=== PATIENT | male | born 1955 | race Caucasian/White ===

== ENCOUNTER 2020-01-05 13:20 | Emergency (ER) | payer MEDICARE, MEDICAID ==
[~2020-01-05] VITALS: Ht 175.3 cm; Wt 104.3 kg
[2020-01-05 15:23] VITALS: BP 134/77
== END 2020-01-05 16:26 | disposition home or self-care (01) ==
LOC: EDBD 13:20 → ER 13:29
DX: S83.91XA Sprain of unspecified site of right knee, initial encounter (principal); W22.8XXA Striking against or struck by other objects, initial encounter; Y93.89 Activity, other specified; Y92.091 Bathroom in other non-institutional residence as the place of occurrence of the external cause; Y99.8 Other external cause status
CPT/HCPCS: 73562

== ENCOUNTER 2021-07-26 17:59 | Inpatient (IN) | payer MEDICARE, MEDICAID ==
[~2021-07-26] VITALS: Ht 180.3 cm; Wt 107.3 kg
[2021-07-26] MEDS ORDERED: ETOMIDATE (2MG/ML) 20ML VIAL IV ONE ×2 (18:02→18:15)
[2021-07-26] MEDS ORDERED: SUCCINYLCHOLINE CHLORIDE 20 MG/ML 10ML VIAL IV ONE ×2 (18:02→18:15)
[2021-07-26 18:04] VITALS: BP 165/115
[2021-07-26] MEDS ORDERED: NITROGLYCERIN 50MG/250ML 250 ML IV ONE (18:15)
[2021-07-26] MEDS ORDERED: FUROSEMIDE 40 MG/4 ML VIAL IV ONE (18:15)
[2021-07-26] MEDS ORDERED: PROPOFOL 100 ML IV ONE (18:29)
[2021-07-26] MEDS ORDERED: methylPREDNISolone SOD SUCC 125 MG/2 ML VL IV ONE (19:15)
[2021-07-26] MEDS: MIDAZOLAM DRIP 50 mg/50mL 50 ML IV SCH ×2 (19:35→21:25)
[2021-07-26] MEDS ORDERED: NOREPINEPHRINE 8 MG/250ML KIT 250 ML IV ONE (19:36)
[2021-07-26] MEDS: PROPOFOL 100 ML IV SCH (19:36)
[2021-07-26 19:56] LABS: Mean Corpuscular Hgb Conc. 32.7 g/dL (32.0-36.0)
[2021-07-26 19:57] LABS: Basophils # (auto) 0.1 10 ^3/uL (0-0.2); Basophils % (auto) 0.7 % (0.0-2.0); Eosinophils # (auto) 0.1 10 ^3/uL (0-0.8); Eosinophils % (auto) 0.7 % (0.0-7.0); Hemoglobin 17.3 g/dL (13.5-17.5); Lymphocytes # (auto) 4.1 10 ^3/uL (0.4-5.4); Lymphocytes % (auto) 20.2 % (10.0-50.0); Mean Corpuscular Hemoglobin 34.1 pg (28.0-32.0); Mean Corpuscular Volume 104.4 fL (80.0-100.0); Neutrophils # (auto) 14.9 10 ^3/uL (1.6-8.6); Neutrophils % (auto) 73.4 % (37.0-80.0); Nucleated Red Blood Cells % 0.1 %; Red Blood Cells 5.08 10^6/uL (4.5-5.90); Red Cell Distribution Width 13.4 % (11.8-14.3); White Blood Cell 20.3 10^3/uL (4.4-10.8)
[2021-07-26] MEDS: NOREPINEPHRINE 8 MG/250ML KIT 250 ML IV SCH (19:58)
[2021-07-26 20:00] VITALS: BP 106/68
[2021-07-26 20:00] LABS: Albumin 3.5 g/dL (3.4-5.0); Calcium 9.1 mg/dL (8.5-10.1); Potassium 4.6 mmol/L (3.5-5.1)
[2021-07-26 20:03] LABS: Lactic Acid w/Reflex 5.4 mmol/L (0.4-2.0)
[2021-07-26 20:13] LABS: BUN/Creatinine Ratio 11.8; Bilirubin, Total 0.4 mg/dL (0.2-1.0); Total Protein 8.1 g/dL (6.4-8.2)
[2021-07-26] MEDS ORDERED: AZITHROMYCIN 500MG/ 250ML 250 ML IV ONE (20:30)
[2021-07-26] MEDS ORDERED: ALBUMIN 5% 250 ML IV ONE (21:30)
[2021-07-26] MEDS ORDERED: NITROGLYCERIN 0.4 MG SL TAB SL PRN (21:30)
[2021-07-26] MEDS ORDERED: ONDANSETRON HCL 4 MG/2 ML VIAL IV PRN (21:30)
[2021-07-26] MEDS ORDERED: ALBUTEROL SULF 2.5 MG/0.5ML(0.5%) NEB SOLN NEB PRN (21:30)
[2021-07-26] MEDS ORDERED: IPRATROPIUM BROM 0.5 MG/2.5ML INH SOL NEB PRN (21:30)
[2021-07-26] MEDS ORDERED: ENOXAPARIN SOD 100 MG/1 ML SYRINGE SC ONE (21:30)
[2021-07-26] MEDS ORDERED: SODIUM CHLORIDE 0.9% 1,000 ML IV SCH (21:30)
[2021-07-26] MEDS ORDERED: cefTRIAXone 1GM/50ML D5W 50 ML IV ONE (21:30)
[2021-07-26 22:10] VITALS: BP 108/74
[2021-07-27] VITALS (69 sets, daily range): BP systolic 85–126; BP diastolic 46–76
[2021-07-27] MEDS: MIDAZOLAM DRIP 50 mg/50mL 50 ML IV SCH ×7 (01:18→22:43)
[2021-07-27 02:19] LABS: Urine Bacteria FEW /hpf (None Seen); Urine Blood 2+ /uL (Negative); Urine Hyaline Cast MOD /lpf (0 - 2); Urine Mucus FEW (None Seen); Urine Specific Gravity 1.017 (1.001-1.035); Urine WBC 10 /hpf (0 - 3)
[2021-07-27] MEDS ORDERED: SODIUM BICARBONATE 8.4 % INJ 50ML VIAL IV ONE ×2 (05:15→19:23)
[2021-07-27 05:29] LABS: Eosinophils # (auto) 0 10 ^3/uL (0-0.8); Hemoglobin 15.1 g/dL (13.5-17.5); Lymphocytes # (auto) 0.8 10 ^3/uL (0.4-5.4); Neutrophils % (auto) 91.3 % (37.0-80.0)
[2021-07-27 05:31] LABS: Basophils # (auto) 0.1 10 ^3/uL (0-0.2); Basophils % (auto) 0.4 % (0.0-2.0); Hematocrit 44.8 % (41.0-53.0); Lymphocytes % (auto) 6.1 % (10.0-50.0); Mean Corpuscular Hemoglobin 34.9 pg (28.0-32.0); Mean Corpuscular Hgb Conc. 33.8 g/dL (32.0-36.0); Mean Corpuscular Volume 103.5 fL (80.0-100.0); Monocytes # (auto) 0.3 10 ^3/uL (0-1.3); Monocytes % (auto) 2.2 % (0.0-12.0); Neutrophils # (auto) 11.6 10 ^3/uL (1.6-8.6); Red Blood Cells 4.33 10^6/uL (4.5-5.90); Red Cell Distribution Width 12.9 % (11.8-14.3); White Blood Cell 12.7 10^3/uL (4.4-10.8)
[2021-07-27] MEDS: PROPOFOL 100 ML IV SCH ×2 (05:39→16:48)
[2021-07-27 06:06] LABS: Albumin 3.3 g/dL (3.4-5.0); BUN/Creatinine Ratio 13.9; Calcium 8.5 mg/dL (8.5-10.1); Potassium 5.1 mmol/L (3.5-5.1)
[2021-07-27 06:09] LABS: Bilirubin, Total 0.4 mg/dL (0.2-1.0); Total Protein 7.3 g/dL (6.4-8.2)
[2021-07-27] MEDS: cefTRIAXone 1GM/50ML D5W 50 ML IV SCH ×2 (09:00→10:20)
[2021-07-27] MEDS: ASPirin 81 mg TAB PO SCH (10:00)
[2021-07-27] MEDS ORDERED: DexAMETHasone SOD PHOS 10MG/1ML VIAL INJ IV SCH (10:00)
[2021-07-27] MEDS ORDERED: ENOXAPARIN SOD 100 MG/1 ML SYRINGE SC SCH (10:00)
[2021-07-27] MEDS ORDERED: DEXTROSE (50%) 50ML SYRG IV PRN (13:00)
[2021-07-27] MEDS: SODIUM BICARBONATE 50ML VIAL 50 ML in SOD CHL 0.45% 1,000 ML IV SCH (13:00)
[2021-07-27] MEDS ORDERED: PANTOPRAZOLE 40 MG/10 ML VIAL INJ IV ONE (13:00)
[2021-07-27] MEDS ORDERED: PIPERACILLIN-TAZOB 3.375GM 100 ML IV ONE (13:00)
[2021-07-27] MEDS: PHENYLEPHRINE IV 250 ML IV SCH (16:15)
[2021-07-27] MEDS: BUMETANIDE 2.5mg/10ml (0.25 mg/ml) INJ IV SCH (17:45)
[2021-07-27] MEDS: InsuLIN REG 1unit/0.01ml Soln (100units/ml) SC SCH ×2 (18:00→23:23)
[2021-07-27] MEDS: ACCU-CHEK COMFORT CURVE STRIP VI SCH ×2 (18:00→23:02)
[2021-07-27] MEDS: DOPamine 1600MCG/ML D5W 250 ML IV SCH (18:32)
[2021-07-27] MEDS: PIPERACILLIN-TAZOB 3.375GM 100 ML IV SCH (19:00)
[2021-07-27 19:17] LABS: Magnesium 2.3 mg/dL (1.6-2.6); Phosphorus 4.8 mg/dL (2.5-4.90); Uric Acid 9.6 mg/dL (3.5-7.2)
[2021-07-27] MEDS: NOREPINEPHRINE 8 MG/250ML KIT 250 ML IV SCH (19:45)
[2021-07-27] MEDS: ATORVASTATIN 20 MG TAB PO SCH (21:13)
[2021-07-27] MEDS: fentaNYL Drip 2500mCg/250mlNS 250 ML IV SCH ×2 (22:00)
[2021-07-28] VITALS (97 sets, daily range): BP systolic 89–166; BP diastolic 52–137
[2021-07-28] MEDS: PHENYLEPHRINE IV 250 ML IV SCH ×3 (00:35→17:15)
[2021-07-28] MEDS: PIPERACILLIN-TAZOB 3.375GM 100 ML IV SCH ×4 (01:00→19:17)
[2021-07-28] MEDS: PROPOFOL 100 ML IV SCH ×2 (03:57→15:06)
[2021-07-28 04:40] LABS: Basophils # (auto) 0.1 10 ^3/uL (0-0.2); Eosinophils # (auto) 0 10 ^3/uL (0-0.8); Monocytes # (auto) 1.1 10 ^3/uL (0-1.3); Red Cell Distribution Width 13.5 % (11.8-14.3)
[2021-07-28 04:45] LABS: Basophils % (auto) 0.7 % (0.0-2.0); Lymphocytes # (auto) 1.2 10 ^3/uL (0.4-5.4); Lymphocytes % (auto) 7.8 % (10.0-50.0); Mean Corpuscular Hemoglobin 35.1 pg (28.0-32.0); Mean Corpuscular Hgb Conc. 33.3 g/dL (32.0-36.0); Mean Corpuscular Volume 105.3 fL (80.0-100.0); Monocytes % (auto) 6.7 % (0.0-12.0); Neutrophils # (auto) 13.4 10 ^3/uL (1.6-8.6); Neutrophils % (auto) 84.8 % (37.0-80.0); Red Blood Cells 4.27 10^6/uL (4.5-5.90); White Blood Cell 15.8 10^3/uL (4.4-10.8)
[2021-07-28 04:52] LABS: INR 1.09 (0.9-1.15); Partial Thromboplastin Time 30.1 sec (23.6-33.0)
[2021-07-28 04:58] LABS: Potassium 4.9 mmol/L (3.5-5.1)
[2021-07-28] MEDS: ACCU-CHEK COMFORT CURVE STRIP VI SCH ×3 (05:06→18:01)
[2021-07-28 05:10] LABS: Albumin 3.4 g/dL (3.4-5.0); BUN/Creatinine Ratio 18.1; Bilirubin, Total 0.3 mg/dL (0.2-1.0); Calcium 8.1 mg/dL (8.5-10.1); Total Protein 7.2 g/dL (6.4-8.2)
[2021-07-28] MEDS: MIDAZOLAM DRIP 50 mg/50mL 50 ML IV SCH ×8 (05:11→23:35)
[2021-07-28] MEDS: InsuLIN REG 1unit/0.01ml Soln (100units/ml) SC SCH ×3 (05:12→18:00)
[2021-07-28] MEDS: PANTOPRAZOLE 40 MG/10 ML VIAL INJ IV SCH (09:34)
[2021-07-28] MEDS: ASPirin 81 mg TAB PO SCH (09:35)
[2021-07-28] MEDS: BUMETANIDE 2.5mg/10ml (0.25 mg/ml) INJ IV SCH (09:35)
[2021-07-28] MEDS ORDERED: ENOXAPARIN SOD 100 MG/1 ML SYRINGE SC SCH (10:00)
[2021-07-28] MEDS: fentaNYL Drip 2500mCg/250mlNS 250 ML IV SCH (12:53)
[2021-07-28] MEDS: SODIUM BICARBONATE 50ML VIAL 50 ML in SOD CHL 0.45% 1,000 ML IV SCH (15:39)
[2021-07-28] MEDS: BUMETANIDE INJECTION 12.5 MG in GIVE UN-DILUTED 0 ML IV SCH (16:51)
[2021-07-28] MEDS: DOPamine 1600MCG/ML D5W 250 ML IV SCH (19:58)
[2021-07-28] MEDS: ATORVASTATIN 20 MG TAB PO SCH (21:47)
[2021-07-29] VITALS (82 sets, daily range): BP systolic 90–144; BP diastolic 52–84
[2021-07-29] MEDS: NOREPINEPHRINE 8 MG/250ML KIT 250 ML IV SCH (00:09)
[2021-07-29] MEDS: InsuLIN REG 1unit/0.01ml Soln (100units/ml) SC SCH ×5 (00:12→23:55)
[2021-07-29] MEDS: ACCU-CHEK COMFORT CURVE STRIP VI SCH ×5 (00:12→23:55)
[2021-07-29] MEDS: PIPERACILLIN-TAZOB 3.375GM 100 ML IV SCH ×4 (00:52→19:12)
[2021-07-29] MEDS: PHENYLEPHRINE IV 250 ML IV SCH ×2 (01:35→09:55)
[2021-07-29] MEDS: PROPOFOL 100 ML IV SCH ×2 (02:15→13:24)
[2021-07-29] MEDS: MIDAZOLAM DRIP 50 mg/50mL 50 ML IV SCH ×6 (02:55→23:00)
[2021-07-29 04:28] LABS: Basophils # (auto) 0 10 ^3/uL (0-0.2); Basophils % (auto) 0.3 % (0.0-2.0); Eosinophils # (auto) 0 10 ^3/uL (0-0.8); Eosinophils % (auto) 0.1 % (0.0-7.0); Hematocrit 42.4 % (41.0-53.0); Hemoglobin 14.4 g/dL (13.5-17.5); Lymphocytes # (auto) 2.1 10 ^3/uL (0.4-5.4); Lymphocytes % (auto) 13.7 % (10.0-50.0); Mean Corpuscular Hemoglobin 34.9 pg (28.0-32.0); Mean Corpuscular Volume 102.6 fL (80.0-100.0); Monocytes # (auto) 1.3 10 ^3/uL (0-1.3); Monocytes % (auto) 8.6 % (0.0-12.0); Neutrophils # (auto) 11.8 10 ^3/uL (1.6-8.6); Neutrophils % (auto) 77.3 % (37.0-80.0); Red Blood Cells 4.13 10^6/uL (4.5-5.90); Red Cell Distribution Width 12.8 % (11.8-14.3); White Blood Cell 15.3 10^3/uL (4.4-10.8)
[2021-07-29 04:46] LABS: Potassium 3.7 mmol/L (3.5-5.1)
[2021-07-29 04:55] LABS: BUN/Creatinine Ratio 20.5
[2021-07-29 05:26] LABS: Calcium 8.2 mg/dL (8.5-10.1)
[2021-07-29] MEDS: SODIUM BICARBONATE 50ML VIAL 50 ML in SOD CHL 0.45% 1,000 ML IV SCH (07:00)
[2021-07-29] MEDS ORDERED: SODIUM CHL 0.9% 0 ML ONE (07:30)
[2021-07-29] MEDS ORDERED: ANGIOMAX 250 MG VIAL IV ONE (07:30)
[2021-07-29] MEDS ORDERED: LIDOCAINE 2%HCL (LOCAL ANESTH.) INJ 20ML MDV ONE (07:30)
[2021-07-29] MEDS: ENOXAPARIN SOD 100 MG/1 ML SYRINGE SC SCH ×2 (10:00→21:43)
[2021-07-29] MEDS: ASPirin 81 mg TAB PO SCH (10:57)
[2021-07-29] MEDS: PANTOPRAZOLE 40 MG/10 ML VIAL INJ IV SCH (10:57)
[2021-07-29] MEDS: BUMETANIDE INJECTION 12.5 MG in GIVE UN-DILUTED 0 ML IV SCH (15:11)
[2021-07-29] MEDS: DOPamine 1600MCG/ML D5W 250 ML IV SCH (17:11)
[2021-07-29] MEDS ORDERED: ERGOCALCIFEROL 50,000 UNIT(1.25MG) CAP PO SCH (18:00)
[2021-07-29] MEDS: ATORVASTATIN 20 MG TAB PO SCH (21:42)
[2021-07-30] VITALS (89 sets, daily range): BP systolic 89–149; BP diastolic 50–98
[2021-07-30] MEDS: fentaNYL Drip 2500mCg/250mlNS 250 ML IV SCH ×2 (00:08→22:00)
[2021-07-30] MEDS: MIDAZOLAM DRIP 50 mg/50mL 50 ML IV SCH ×8 (00:10→22:44)
[2021-07-30] MEDS: PIPERACILLIN-TAZOB 3.375GM 100 ML IV SCH ×4 (01:49→20:13)
[2021-07-30 04:39] LABS: Basophils # (auto) 0.2 10 ^3/uL (0-0.2); Basophils % (auto) 1.5 % (0.0-2.0); Eosinophils # (auto) 0 10 ^3/uL (0-0.8); Eosinophils % (auto) 0.3 % (0.0-7.0); Hematocrit 45.1 % (41.0-53.0); Hemoglobin 15.4 g/dL (13.5-17.5); Lymphocytes # (auto) 2.3 10 ^3/uL (0.4-5.4); Lymphocytes % (auto) 20.1 % (10.0-50.0); Mean Corpuscular Hemoglobin 34.4 pg (28.0-32.0); Mean Corpuscular Hgb Conc. 34.1 g/dL (32.0-36.0); Mean Corpuscular Volume 100.9 fL (80.0-100.0); Monocytes # (auto) 1.2 10 ^3/uL (0-1.3); Monocytes % (auto) 10.4 % (0.0-12.0); Neutrophils # (auto) 7.6 10 ^3/uL (1.6-8.6); Neutrophils % (auto) 67.7 % (37.0-80.0); Red Blood Cells 4.47 10^6/uL (4.5-5.90); Red Cell Distribution Width 12.7 % (11.8-14.3); White Blood Cell 11.3 10^3/uL (4.4-10.8)
[2021-07-30] MEDS: SODIUM BICARBONATE 50ML VIAL 50 ML in SOD CHL 0.45% 1,000 ML IV SCH (05:00)
[2021-07-30 05:07] LABS: BUN/Creatinine Ratio 24.1; Calcium 8.1 mg/dL (8.5-10.1); Magnesium 2.2 mg/dL (1.6-2.6); Potassium 3.1 mmol/L (3.5-5.1)
[2021-07-30 05:09] LABS: Bilirubin, Total 0.6 mg/dL (0.2-1.0)
[2021-07-30] MEDS: InsuLIN REG 1unit/0.01ml Soln (100units/ml) SC SCH ×3 (06:00→18:51)
[2021-07-30] MEDS: ACCU-CHEK COMFORT CURVE STRIP VI SCH ×3 (06:00→18:00)
[2021-07-30] MEDS: PROPOFOL 100 ML IV SCH ×3 (07:50→22:51)
[2021-07-30] MEDS: PHENYLEPHRINE IV 250 ML IV SCH ×4 (07:50→19:15)
[2021-07-30] MEDS: NOREPINEPHRINE 8 MG/250ML KIT 250 ML IV SCH ×2 (08:58→19:45)
[2021-07-30] MEDS ORDERED: POTASSIUM CHL 20MEQ/100ML 100 ML IV SCH (09:15)
[2021-07-30] MEDS: ENOXAPARIN SOD 100 MG/1 ML SYRINGE SC SCH ×2 (09:59→21:33)
[2021-07-30] MEDS: PANTOPRAZOLE 40 MG/10 ML VIAL INJ IV SCH (10:00)
[2021-07-30] MEDS: ASPirin 81 mg TAB PO SCH (10:23)
[2021-07-30] MEDS: BUMETANIDE INJECTION 12.5 MG in GIVE UN-DILUTED 0 ML IV SCH ×2 (10:24→11:47)
[2021-07-30] MEDS ORDERED: POTASSIUM CHL 20MEQ/100ML 100 ML IV ONE (11:00)
[2021-07-30] MEDS: SOD CHL 0.45% 1,000 ML IV SCH (11:47)
[2021-07-30] MEDS ORDERED: MAGNESIUM SULFATE 1GM/100ML 100 ML IV ONE (17:05)
[2021-07-30] MEDS ORDERED: AMIODARONE 450mg/250ml AE 250 ML IV ONE (17:36)
[2021-07-30] MEDS: MAGNESIUM SULFATE 1GM/100ML 100 ML IV SCH ×2 (17:38→18:52)
[2021-07-30] MEDS: POTASSIUM CHL 20MEQ/100ML 100 ML IV SCH ×3 (18:56→23:15)
[2021-07-30] MEDS: DOPamine 1600MCG/ML D5W 250 ML IV SCH (18:56)
[2021-07-30 19:30] LABS: Eosinophils # (auto) 0.1 10 ^3/uL (0-0.8)
[2021-07-30 19:32] LABS: Basophils # (auto) 0 10 ^3/uL (0-0.2); Basophils % (auto) 0.2 % (0.0-2.0); Eosinophils % (auto) 0.6 % (0.0-7.0); Hematocrit 45.9 % (41.0-53.0); Hemoglobin 15.7 g/dL (13.5-17.5); Lymphocytes # (auto) 2.4 10 ^3/uL (0.4-5.4); Lymphocytes % (auto) 22.2 % (10.0-50.0); Mean Corpuscular Hemoglobin 34.8 pg (28.0-32.0); Mean Corpuscular Hgb Conc. 34.1 g/dL (32.0-36.0); Mean Corpuscular Volume 102.2 fL (80.0-100.0); Monocytes # (auto) 1.1 10 ^3/uL (0-1.3); Monocytes % (auto) 10.1 % (0.0-12.0); Neutrophils # (auto) 7.2 10 ^3/uL (1.6-8.6); Neutrophils % (auto) 66.9 % (37.0-80.0); Nucleated Red Blood Cells % 0.1 %; Red Cell Distribution Width 12.6 % (11.8-14.3); White Blood Cell 10.8 10^3/uL (4.4-10.8)
[2021-07-30 19:45] LABS: INR 1.16 (0.9-1.15); Partial Thromboplastin Time 31.6 sec (23.6-33.0)
[2021-07-30] MEDS: ATORVASTATIN 20 MG TAB PO SCH (21:33)
[2021-07-30 23:01] LABS: Albumin 3.4 g/dL (3.4-5.0); Calcium 8.6 mg/dL (8.5-10.1); Magnesium 3.1 mg/dL (1.6-2.6); Potassium 3.4 mmol/L (3.5-5.1)
[2021-07-30 23:05] LABS: BUN/Creatinine Ratio 28.8; Bilirubin, Total 0.8 mg/dL (0.2-1.0); Total Protein 7.6 g/dL (6.4-8.2)
[2021-07-30] MEDS ORDERED: AMIODARONE 450mg/250ml AE 250 ML IV SCH (23:45)
[2021-07-31] VITALS (101 sets, daily range): BP systolic 84–160; BP diastolic 49–86
[2021-07-31] MEDS: InsuLIN REG 1unit/0.01ml Soln (100units/ml) SC SCH ×5 (00:29→23:41)
[2021-07-31] MEDS: ACCU-CHEK COMFORT CURVE STRIP VI SCH ×5 (00:30→23:41)
[2021-07-31] MEDS: PIPERACILLIN-TAZOB 3.375GM 100 ML IV SCH ×4 (01:46→19:00)
[2021-07-31] MEDS: SOD CHL 0.45% 1,000 ML IV SCH (01:46)
[2021-07-31] MEDS: PHENYLEPHRINE IV 250 ML IV SCH ×3 (03:35→20:15)
[2021-07-31] MEDS: MIDAZOLAM DRIP 50 mg/50mL 50 ML IV SCH ×7 (04:40→23:43)
[2021-07-31 08:17] LABS: Basophils # (auto) 0.1 10 ^3/uL (0-0.2); Eosinophils # (auto) 0.1 10 ^3/uL (0-0.8); Lymphocytes # (auto) 2.4 10 ^3/uL (0.4-5.4); Monocytes # (auto) 1.3 10 ^3/uL (0-1.3); Nucleated Red Blood Cells % 0.1 %
[2021-07-31 08:19] LABS: Basophils % (auto) 0.7 % (0.0-2.0); Hematocrit 46.1 % (41.0-53.0); Hemoglobin 15.7 g/dL (13.5-17.5); Lymphocytes % (auto) 18.9 % (10.0-50.0); Mean Corpuscular Hemoglobin 34.5 pg (28.0-32.0); Mean Corpuscular Hgb Conc. 34.1 g/dL (32.0-36.0); Mean Corpuscular Volume 101.2 fL (80.0-100.0); Monocytes % (auto) 9.9 % (0.0-12.0); Neutrophils # (auto) 8.8 10 ^3/uL (1.6-8.6); Neutrophils % (auto) 69.5 % (37.0-80.0); Red Blood Cells 4.56 10^6/uL (4.5-5.90); Red Cell Distribution Width 12.6 % (11.8-14.3); White Blood Cell 12.7 10^3/uL (4.4-10.8)
[2021-07-31 08:33] LABS: BUN/Creatinine Ratio 22.4; Calcium 8.6 mg/dL (8.5-10.1); Potassium 3.1 mmol/L (3.5-5.1)
[2021-07-31] MEDS ORDERED: POTASSIUM CHL 20MEQ/100ML 100 ML IV ONE (09:05)
[2021-07-31] MEDS: POTASSIUM CHL 20MEQ/100ML 100 ML IV SCH ×5 (09:18→22:30)
[2021-07-31] MEDS: PROPOFOL 100 ML IV SCH ×2 (10:00→21:09)
[2021-07-31] MEDS: PANTOPRAZOLE 40 MG/10 ML VIAL INJ IV SCH (10:13)
[2021-07-31] MEDS: ENOXAPARIN SOD 100 MG/1 ML SYRINGE SC SCH ×2 (10:13→21:21)
[2021-07-31] MEDS: SOD CHL 0.45% WITH 20MEQ KCL 1,000 ML IV SCH (10:29)
[2021-07-31] MEDS: ASPirin 81 mg TAB PO SCH (11:20)
[2021-07-31] MEDS: Nepro With Carb Steady 1 Liter Bottle GT SCH ×2 (12:00→14:09)
[2021-07-31] MEDS ORDERED: POTASSIUM EFFERVESENT TAB 25 MEQ GT ONE (13:15)
[2021-07-31] MEDS: fentaNYL Drip 2500mCg/250mlNS 250 ML IV SCH (14:06)
[2021-07-31] MEDS: BUMETANIDE INJECTION 12.5 MG in GIVE UN-DILUTED 0 ML IV SCH (18:54)
[2021-07-31] MEDS: ATORVASTATIN 20 MG TAB PO SCH (21:21)
[2021-07-31] MEDS: ACETAMINOPHEN 325 MG TAB PO PRN (23:07)
[2021-07-31] MEDS: NOREPINEPHRINE 8 MG/250ML KIT 250 ML IV SCH (23:40)
[2021-08-01] VITALS (81 sets, daily range): BP systolic 85–190; BP diastolic 43–91
[2021-08-01] MEDS: PIPERACILLIN-TAZOB 3.375GM 100 ML IV SCH ×4 (00:57→18:57)
[2021-08-01] MEDS: PHENYLEPHRINE IV 250 ML IV SCH ×4 (00:57→22:20)
[2021-08-01] MEDS: SOD CHL 0.45% WITH 20MEQ KCL 1,000 ML IV SCH (00:58)
[2021-08-01 04:24] LABS: Basophils # (auto) 0.1 10 ^3/uL (0-0.2); Eosinophils # (auto) 0.2 10 ^3/uL (0-0.8); Eosinophils % (auto) 1.5 % (0.0-7.0)
[2021-08-01 04:26] LABS: Basophils % (auto) 0.8 % (0.0-2.0); Hematocrit 46.6 % (41.0-53.0); Hemoglobin 15.7 g/dL (13.5-17.5); Lymphocytes # (auto) 1.7 10 ^3/uL (0.4-5.4); Lymphocytes % (auto) 14.3 % (10.0-50.0); Mean Corpuscular Hemoglobin 34.3 pg (28.0-32.0); Mean Corpuscular Hgb Conc. 33.8 g/dL (32.0-36.0); Mean Corpuscular Volume 101.6 fL (80.0-100.0); Monocytes # (auto) 1.1 10 ^3/uL (0-1.3); Neutrophils % (auto) 74.4 % (37.0-80.0); Nucleated Red Blood Cells % 0.2 %; Red Blood Cells 4.58 10^6/uL (4.5-5.90); Red Cell Distribution Width 12.8 % (11.8-14.3); White Blood Cell 12.1 10^3/uL (4.4-10.8)
[2021-08-01 04:40] LABS: Albumin 2.9 g/dL (3.4-5.0); BUN/Creatinine Ratio 21.1; Calcium 8.5 mg/dL (8.5-10.1); Potassium 3.7 mmol/L (3.5-5.1)
[2021-08-01 04:43] LABS: Bilirubin, Total 1.3 mg/dL (0.2-1.0); Total Protein 7.4 g/dL (6.4-8.2)
[2021-08-01] MEDS: MIDAZOLAM DRIP 50 mg/50mL 50 ML IV SCH ×3 (05:16→22:20)
[2021-08-01] MEDS: DOPamine 1600MCG/ML D5W 250 ML IV SCH ×2 (05:17→23:23)
[2021-08-01] MEDS: InsuLIN REG 1unit/0.01ml Soln (100units/ml) SC SCH ×4 (05:17→23:22)
[2021-08-01] MEDS: ACCU-CHEK COMFORT CURVE STRIP VI SCH ×4 (05:17→23:22)
[2021-08-01] MEDS: PROPOFOL 100 ML IV SCH ×3 (08:18→22:20)
[2021-08-01] MEDS: POTASSIUM CHL 20MEQ/100ML 100 ML IV SCH ×4 (09:34→22:19)
[2021-08-01] MEDS: PANTOPRAZOLE 40 MG/10 ML VIAL INJ IV SCH (09:35)
[2021-08-01] MEDS: ASPirin 81 mg TAB PO SCH (09:35)
[2021-08-01] MEDS: ENOXAPARIN SOD 100 MG/1 ML SYRINGE SC SCH (09:36)
[2021-08-01] MEDS: BUMETANIDE INJECTION 12.5 MG in GIVE UN-DILUTED 0 ML IV SCH (09:56)
[2021-08-01] MEDS ORDERED: EPINEPHrine HCL 1 MG/10 ML SYRG IV ONE (12:41)
[2021-08-01] MEDS: fentaNYL Drip 2500mCg/250mlNS 250 ML IV SCH (12:59)
[2021-08-01] MEDS ORDERED: LIDOCAINE 2%HCL (LOCAL ANESTH.) INJ 20ML MDV ONE (13:59)
[2021-08-01] MEDS ORDERED: ANGIOMAX 250 MG VIAL IV ONE ×2 (13:59→15:51)
[2021-08-01] MEDS ORDERED: SODIUM CHL 0.9% 50 ML ONE ×2 (13:59→15:51)
[2021-08-01] MEDS ORDERED: TICAGRELOR 90 MG TAB ONE (15:59)
[2021-08-01 18:17] LABS: Basophils % (auto) 0.4 % (0.0-2.0); Eosinophils # (auto) 0.2 10 ^3/uL (0-0.8); Lymphocytes # (auto) 1.3 10 ^3/uL (0.4-5.4); Mean Corpuscular Hgb Conc. 34.1 g/dL (32.0-36.0); Nucleated Red Blood Cells % 0.1 %
[2021-08-01 18:20] LABS: Basophils # (auto) 0.1 10 ^3/uL (0-0.2); Eosinophils % (auto) 1.4 % (0.0-7.0); Hematocrit 45.6 % (41.0-53.0); Hemoglobin 15.6 g/dL (13.5-17.5); Lymphocytes % (auto) 10.4 % (10.0-50.0); Mean Corpuscular Hemoglobin 34.4 pg (28.0-32.0); Monocytes # (auto) 1.2 10 ^3/uL (0-1.3); Monocytes % (auto) 9.4 % (0.0-12.0); Neutrophils # (auto) 9.8 10 ^3/uL (1.6-8.6); Neutrophils % (auto) 78.4 % (37.0-80.0); Red Blood Cells 4.52 10^6/uL (4.5-5.90); Red Cell Distribution Width 12.8 % (11.8-14.3); White Blood Cell 12.5 10^3/uL (4.4-10.8)
[2021-08-01 18:40] LABS: Calcium 8.6 mg/dL (8.5-10.1); Magnesium 2.5 mg/dL (1.6-2.6); Potassium 3.6 mmol/L (3.5-5.1)
[2021-08-01 18:45] LABS: Bilirubin, Total 1.6 mg/dL (0.2-1.0); Total Protein 7.7 g/dL (6.4-8.2)
[2021-08-01] MEDS: NOREPINEPHRINE 8 MG/250ML KIT 250 ML IV SCH (19:45)
[2021-08-01] MEDS: TICAGRELOR 90 MG TAB PO SCH (22:19)
[2021-08-01] MEDS: ATORVASTATIN 20 MG TAB PO SCH (22:20)
[2021-08-02] VITALS (100 sets, daily range): BP systolic 81–151; BP diastolic 40–85
[2021-08-02] MEDS: ACETAMINOPHEN 325 MG TAB PO PRN (00:02)
[2021-08-02] MEDS: PIPERACILLIN-TAZOB 3.375GM 100 ML IV SCH ×4 (00:02→18:33)
[2021-08-02 04:07] LABS: Lymphocytes # (auto) 1.2 10 ^3/uL (0.4-5.4); Lymphocytes % (auto) 8.4 % (10.0-50.0)
[2021-08-02 04:11] LABS: Basophils # (auto) 0.1 10 ^3/uL (0-0.2); Basophils % (auto) 0.4 % (0.0-2.0); Eosinophils # (auto) 0.2 10 ^3/uL (0-0.8); Eosinophils % (auto) 1.1 % (0.0-7.0); Hematocrit 45.2 % (41.0-53.0); Hemoglobin 15.7 g/dL (13.5-17.5); Mean Corpuscular Hemoglobin 35.3 pg (28.0-32.0); Mean Corpuscular Hgb Conc. 34.8 g/dL (32.0-36.0); Mean Corpuscular Volume 101.5 fL (80.0-100.0); Monocytes # (auto) 1.2 10 ^3/uL (0-1.3); Monocytes % (auto) 8.5 % (0.0-12.0); Neutrophils # (auto) 11.5 10 ^3/uL (1.6-8.6); Neutrophils % (auto) 81.6 % (37.0-80.0); Red Blood Cells 4.45 10^6/uL (4.5-5.90); Red Cell Distribution Width 12.4 % (11.8-14.3)
[2021-08-02 04:24] LABS: BUN/Creatinine Ratio 21.5; Calcium 8.9 mg/dL (8.5-10.1); Potassium 3.8 mmol/L (3.5-5.1)
[2021-08-02] MEDS: ACCU-CHEK COMFORT CURVE STRIP VI SCH ×3 (05:54→18:34)
[2021-08-02] MEDS: InsuLIN REG 1unit/0.01ml Soln (100units/ml) SC SCH ×3 (05:56→18:41)
[2021-08-02] MEDS: MIDAZOLAM DRIP 50 mg/50mL 50 ML IV SCH ×8 (08:39→21:11)
[2021-08-02] MEDS: DOPamine 1600MCG/ML D5W 250 ML IV SCH ×2 (08:39→14:55)
[2021-08-02] MEDS: ASPirin 81 mg TAB PO SCH (09:38)
[2021-08-02] MEDS: PANTOPRAZOLE 40 MG/10 ML VIAL INJ IV SCH (09:38)
[2021-08-02] MEDS: TICAGRELOR 90 MG TAB PO SCH ×2 (09:38→21:31)
[2021-08-02] MEDS: fentaNYL Drip 2500mCg/250mlNS 250 ML IV SCH (12:34)
[2021-08-02] MEDS: PHENYLEPHRINE IV 250 ML IV SCH ×2 (13:55→21:11)
[2021-08-02 13:58] LABS: Basophils # (auto) 0.1 10 ^3/uL (0-0.2); Basophils % (auto) 0.5 % (0.0-2.0); Eosinophils # (auto) 0.2 10 ^3/uL (0-0.8); Eosinophils % (auto) 1.7 % (0.0-7.0); Hematocrit 44.9 % (41.0-53.0); Hemoglobin 15.5 g/dL (13.5-17.5); Lymphocytes # (auto) 1.6 10 ^3/uL (0.4-5.4); Lymphocytes % (auto) 11.3 % (10.0-50.0); Mean Corpuscular Hemoglobin 34.5 pg (28.0-32.0); Mean Corpuscular Hgb Conc. 34.4 g/dL (32.0-36.0); Mean Corpuscular Volume 100.1 fL (80.0-100.0); Monocytes # (auto) 1.2 10 ^3/uL (0-1.3); Monocytes % (auto) 8.2 % (0.0-12.0); Neutrophils # (auto) 11.3 10 ^3/uL (1.6-8.6); Neutrophils % (auto) 78.3 % (37.0-80.0); Red Blood Cells 4.49 10^6/uL (4.5-5.90); Red Cell Distribution Width 12.4 % (11.8-14.3); White Blood Cell 14.5 10^3/uL (4.4-10.8)
[2021-08-02 14:14] LABS: INR 1.2 (0.9-1.15); Partial Thromboplastin Time 29.9 sec (23.6-33.0)
[2021-08-02] MEDS: BUMETANIDE 2.5mg/10ml (0.25 mg/ml) INJ IV SCH (18:34)
[2021-08-02] MEDS: PROPOFOL 100 ML IV SCH (19:15)
[2021-08-02] MEDS: NOREPINEPHRINE 8 MG/250ML KIT 250 ML IV SCH (19:45)
[2021-08-02] MEDS: SODIUM CHLOR 0.9% PF (SALINE LOCK) 10ML VIAL/SYR IV SCH (21:11)
[2021-08-02] MEDS: ATORVASTATIN 20 MG TAB PO SCH (21:31)
[2021-08-03] VITALS (101 sets, daily range): BP systolic 83–155; BP diastolic 39–103
[2021-08-03] MEDS: MIDAZOLAM DRIP 50 mg/50mL 50 ML IV SCH ×8 (00:18→22:55)
[2021-08-03] MEDS: ACCU-CHEK COMFORT CURVE STRIP VI SCH ×5 (00:19→23:34)
[2021-08-03] MEDS: PIPERACILLIN-TAZOB 3.375GM 100 ML IV SCH ×4 (00:19→18:52)
[2021-08-03] MEDS: InsuLIN REG 1unit/0.01ml Soln (100units/ml) SC SCH ×5 (00:19→23:35)
[2021-08-03] MEDS: DOPamine 1600MCG/ML D5W 250 ML IV SCH ×4 (04:27→17:35)
[2021-08-03] MEDS: BUMETANIDE 2.5mg/10ml (0.25 mg/ml) INJ IV SCH ×2 (04:32→17:34)
[2021-08-03] MEDS: PROPOFOL 100 ML IV SCH ×2 (04:32→16:03)
[2021-08-03] MEDS: PHENYLEPHRINE IV 250 ML IV SCH ×3 (04:33→23:15)
[2021-08-03 04:54] LABS: BUN/Creatinine Ratio 27.3; Calcium 7.4 mg/dL (8.5-10.1)
[2021-08-03 05:08] LABS: Basophils # (auto) 0.1 10 ^3/uL (0-0.2); Basophils % (auto) 0.4 % (0.0-2.0); Eosinophils # (auto) 0.2 10 ^3/uL (0-0.8); Eosinophils % (auto) 1.2 % (0.0-7.0); Hematocrit 42.5 % (41.0-53.0); Hemoglobin 14.7 g/dL (13.5-17.5); Lymphocytes # (auto) 1.4 10 ^3/uL (0.4-5.4); Lymphocytes % (auto) 9.6 % (10.0-50.0); Mean Corpuscular Hemoglobin 34.8 pg (28.0-32.0); Mean Corpuscular Hgb Conc. 34.6 g/dL (32.0-36.0); Mean Corpuscular Volume 100.7 fL (80.0-100.0); Monocytes # (auto) 1.3 10 ^3/uL (0-1.3); Monocytes % (auto) 9.2 % (0.0-12.0); Neutrophils # (auto) 11.6 10 ^3/uL (1.6-8.6); Neutrophils % (auto) 79.6 % (37.0-80.0); Red Blood Cells 4.22 10^6/uL (4.5-5.90); Red Cell Distribution Width 12.6 % (11.8-14.3); White Blood Cell 14.5 10^3/uL (4.4-10.8)
[2021-08-03] MEDS ORDERED: POTASSIUM CHL 20MEQ/100ML 100 ML IV ONE ×2 (06:45→12:00)
[2021-08-03] MEDS: PANTOPRAZOLE 40 MG/10 ML VIAL INJ IV SCH (10:31)
[2021-08-03] MEDS: SODIUM CHLOR 0.9% PF (SALINE LOCK) 10ML VIAL/SYR IV SCH ×2 (10:32→22:17)
[2021-08-03] MEDS: ASPirin 81 mg TAB PO SCH (10:32)
[2021-08-03] MEDS: TICAGRELOR 90 MG TAB PO SCH ×2 (10:32→22:18)
[2021-08-03] MEDS: fentaNYL Drip 2500mCg/250mlNS 250 ML IV SCH (12:32)
[2021-08-03] MEDS: NOREPINEPHRINE 8 MG/250ML KIT 250 ML IV SCH (19:45)
[2021-08-03] MEDS: ATORVASTATIN 20 MG TAB PO SCH (22:18)
[2021-08-04] VITALS (104 sets, daily range): BP systolic 93–190; BP diastolic 34–106
[2021-08-04] MEDS: PIPERACILLIN-TAZOB 3.375GM 100 ML IV SCH ×4 (01:09→18:25)
[2021-08-04] MEDS: DOPamine 1600MCG/ML D5W 250 ML IV SCH ×2 (01:10→07:18)
[2021-08-04] MEDS: MIDAZOLAM DRIP 50 mg/50mL 50 ML IV SCH ×7 (02:15→22:15)
[2021-08-04] MEDS: PROPOFOL 100 ML IV SCH ×2 (03:12→14:21)
[2021-08-04 03:31] LABS: Basophils # (auto) 0.1 10 ^3/uL (0-0.2); Eosinophils # (auto) 0.3 10 ^3/uL (0-0.8); Lymphocytes # (auto) 1.7 10 ^3/uL (0.4-5.4); Monocytes # (auto) 1.2 10 ^3/uL (0-1.3)
[2021-08-04 03:33] LABS: Basophils % (auto) 1.1 % (0.0-2.0); Hematocrit 41.5 % (41.0-53.0); Hemoglobin 14.5 g/dL (13.5-17.5); Lymphocytes % (auto) 13.2 % (10.0-50.0); Mean Corpuscular Hemoglobin 34.9 pg (28.0-32.0); Mean Corpuscular Hgb Conc. 34.9 g/dL (32.0-36.0); Mean Corpuscular Volume 100.1 fL (80.0-100.0); Monocytes % (auto) 8.9 % (0.0-12.0); Neutrophils # (auto) 9.9 10 ^3/uL (1.6-8.6); Neutrophils % (auto) 74.8 % (37.0-80.0); Red Blood Cells 4.15 10^6/uL (4.5-5.90); Red Cell Distribution Width 12.4 % (11.8-14.3); White Blood Cell 13.2 10^3/uL (4.4-10.8)
[2021-08-04 03:49] LABS: Calcium 8.6 mg/dL (8.5-10.1); Potassium 3.3 mmol/L (3.5-5.1)
[2021-08-04] MEDS: ACCU-CHEK COMFORT CURVE STRIP VI SCH ×3 (05:39→17:55)
[2021-08-04] MEDS: InsuLIN REG 1unit/0.01ml Soln (100units/ml) SC SCH ×3 (05:39→18:24)
[2021-08-04] MEDS: BUMETANIDE 2.5mg/10ml (0.25 mg/ml) INJ IV SCH ×2 (05:43→17:55)
[2021-08-04] MEDS: PHENYLEPHRINE IV 250 ML IV SCH ×2 (07:35→15:55)
[2021-08-04] MEDS: ASPirin 81 mg TAB PO SCH (09:36)
[2021-08-04] MEDS: SODIUM CHLOR 0.9% PF (SALINE LOCK) 10ML VIAL/SYR IV SCH ×2 (09:36→22:07)
[2021-08-04] MEDS: POTASSIUM EFFERVESENT TAB 25 MEQ GT SCH (09:36)
[2021-08-04] MEDS: PANTOPRAZOLE 40 MG/10 ML VIAL INJ IV SCH (09:36)
[2021-08-04] MEDS: TICAGRELOR 90 MG TAB PO SCH ×2 (09:37→22:07)
[2021-08-04] MEDS ORDERED: LABETALOL HCL 5 MG/ML 4ML SYRINGE IV PRN (11:45)
[2021-08-04] MEDS: LABETALOL HCL 5 MG/ML 4ML SYRINGE IV PRN (11:46)
[2021-08-04] MEDS: POTASSIUM CHL 20MEQ/100ML 100 ML IV SCH ×3 (12:25→16:15)
[2021-08-04] MEDS ORDERED: POTASSIUM EFFERVESENT TAB 25 MEQ GT ONE (15:00)
[2021-08-04] MEDS: NOREPINEPHRINE 8 MG/250ML KIT 250 ML IV SCH (19:45)
[2021-08-04] MEDS: fentaNYL Drip 2500mCg/250mlNS 250 ML IV SCH (22:00)
[2021-08-04] MEDS: ATORVASTATIN 20 MG TAB PO SCH (22:07)
[2021-08-05] VITALS (98 sets, daily range): BP systolic 77–172; BP diastolic 38–102
[2021-08-05] MEDS ORDERED: CATHFLO ACTIVASE (ALTEPLASE) 2 MG VIAL IV ONE ×2 (00:15→00:42)
[2021-08-05] MEDS: PHENYLEPHRINE IV 250 ML IV SCH (00:15)
[2021-08-05] MEDS: ACCU-CHEK COMFORT CURVE STRIP VI SCH ×5 (00:20→23:54)
[2021-08-05] MEDS: PIPERACILLIN-TAZOB 3.375GM 100 ML IV SCH ×4 (01:11→19:22)
[2021-08-05] MEDS: fentaNYL Drip 2500mCg/250mlNS 250 ML IV SCH ×2 (01:12→16:43)
[2021-08-05] MEDS: PROPOFOL 100 ML IV SCH ×2 (01:30→21:45)
[2021-08-05] MEDS: MIDAZOLAM DRIP 50 mg/50mL 50 ML IV SCH ×4 (01:35→21:44)
[2021-08-05 04:38] LABS: Basophils % (auto) 0.4 % (0.0-2.0); Eosinophils # (auto) 0.2 10 ^3/uL (0-0.8); Hemoglobin 13.7 g/dL (13.5-17.5); Red Cell Distribution Width 12.6 % (11.8-14.3)
[2021-08-05 04:42] LABS: Basophils # (auto) 0.1 10 ^3/uL (0-0.2); Eosinophils % (auto) 1.5 % (0.0-7.0); Hematocrit 40.2 % (41.0-53.0); Lymphocytes # (auto) 1.9 10 ^3/uL (0.4-5.4); Lymphocytes % (auto) 14.6 % (10.0-50.0); Mean Corpuscular Hemoglobin 34.4 pg (28.0-32.0); Mean Corpuscular Hgb Conc. 34.1 g/dL (32.0-36.0); Mean Corpuscular Volume 100.9 fL (80.0-100.0); Monocytes # (auto) 1.2 10 ^3/uL (0-1.3); Neutrophils # (auto) 9.5 10 ^3/uL (1.6-8.6); Neutrophils % (auto) 74.5 % (37.0-80.0); Red Blood Cells 3.99 10^6/uL (4.5-5.90); White Blood Cell 12.8 10^3/uL (4.4-10.8)
[2021-08-05] MEDS: BUMETANIDE 2.5mg/10ml (0.25 mg/ml) INJ IV SCH ×2 (06:28→17:09)
[2021-08-05] MEDS: InsuLIN REG 1unit/0.01ml Soln (100units/ml) SC SCH ×5 (06:30→23:54)
[2021-08-05 07:11] LABS: Potassium 3.8 mmol/L (3.5-5.1)
[2021-08-05 07:12] LABS: BUN/Creatinine Ratio 28.7
[2021-08-05] MEDS: POTASSIUM EFFERVESENT TAB 25 MEQ GT SCH (09:19)
[2021-08-05] MEDS: TICAGRELOR 90 MG TAB PO SCH ×2 (09:19→22:21)
[2021-08-05] MEDS: ASPirin 81 mg TAB PO SCH (09:19)
[2021-08-05] MEDS: PANTOPRAZOLE 40 MG/10 ML VIAL INJ IV SCH (09:19)
[2021-08-05] MEDS: SODIUM CHLOR 0.9% PF (SALINE LOCK) 10ML VIAL/SYR IV SCH ×2 (09:20→22:21)
[2021-08-05] MEDS: NOREPINEPHRINE 8 MG/250ML KIT 250 ML IV SCH (14:53)
[2021-08-05] MEDS: QUEtiapine FUMARATE 25 MG TAB PO SCH (22:22)
[2021-08-05] MEDS: ATORVASTATIN 20 MG TAB PO SCH (22:22)
[2021-08-06] VITALS (63 sets, daily range): BP systolic 92–170; BP diastolic 51–110
[2021-08-06] MEDS: PIPERACILLIN-TAZOB 3.375GM 100 ML IV SCH ×4 (00:45→19:00)
[2021-08-06] MEDS: MIDAZOLAM DRIP 50 mg/50mL 50 ML IV SCH ×6 (00:46→22:54)
[2021-08-06] MEDS: PHENYLEPHRINE IV 250 ML IV SCH ×3 (00:46→20:42)
[2021-08-06] MEDS: fentaNYL Drip 2500mCg/250mlNS 250 ML IV SCH (04:24)
[2021-08-06 05:13] LABS: Albumin 2.7 g/dL (3.4-5.0); Potassium 3.5 mmol/L (3.5-5.1)
[2021-08-06 05:18] LABS: BUN/Creatinine Ratio 28.8; Bilirubin, Total 1.1 mg/dL (0.2-1.0); Total Protein 7.2 g/dL (6.4-8.2)
[2021-08-06 05:45] LABS: Basophils # (auto) 0.3 10 ^3/uL (0-0.2); Basophils % (auto) 1.3 % (0.0-2.0); Eosinophils # (auto) 1.9 10 ^3/uL (0-0.8); Eosinophils % (auto) 9.4 % (0.0-7.0); Hematocrit 39.4 % (41.0-53.0); Hemoglobin 13.6 g/dL (13.5-17.5); Lymphocytes # (auto) 3.3 10 ^3/uL (0.4-5.4); Lymphocytes % (auto) 16.3 % (10.0-50.0); Mean Corpuscular Hgb Conc. 34.4 g/dL (32.0-36.0); Mean Corpuscular Volume 101.8 fL (80.0-100.0); Monocytes # (auto) 1.7 10 ^3/uL (0-1.3); Monocytes % (auto) 8.4 % (0.0-12.0); Neutrophils # (auto) 13.1 10 ^3/uL (1.6-8.6); Neutrophils % (auto) 64.6 % (37.0-80.0); Nucleated Red Blood Cells % 0.6 %; Red Blood Cells 3.87 10^6/uL (4.5-5.90); Red Cell Distribution Width 12.8 % (11.8-14.3); White Blood Cell 20.3 10^3/uL (4.4-10.8)
[2021-08-06] MEDS: InsuLIN REG 1unit/0.01ml Soln (100units/ml) SC SCH ×3 (06:00→17:30)
[2021-08-06] MEDS: BUMETANIDE 2.5mg/10ml (0.25 mg/ml) INJ IV SCH ×2 (06:03→17:23)
[2021-08-06] MEDS: ACCU-CHEK COMFORT CURVE STRIP VI SCH ×3 (06:03→17:30)
[2021-08-06] MEDS: PANTOPRAZOLE 40 MG/10 ML VIAL INJ IV SCH (09:08)
[2021-08-06] MEDS: ASPirin 81 mg TAB PO SCH (09:08)
[2021-08-06] MEDS: TICAGRELOR 90 MG TAB PO SCH ×2 (09:08→21:25)
[2021-08-06] MEDS: POTASSIUM EFFERVESENT TAB 25 MEQ GT SCH (09:08)
[2021-08-06] MEDS: SODIUM CHLOR 0.9% PF (SALINE LOCK) 10ML VIAL/SYR IV SCH ×2 (09:09→21:25)
[2021-08-06] MEDS: PROPOFOL 100 ML IV SCH ×2 (10:57→22:06)
[2021-08-06] MEDS ORDERED: CLINDAMYCIN 600MG IV 50 ML IV ONE (14:30)
[2021-08-06] MEDS ORDERED: cefTRIAXone 1GM/50ML D5W 50 ML IV ONE (15:00)
[2021-08-06] MEDS: NOREPINEPHRINE 8 MG/250ML KIT 250 ML IV SCH (19:45)
[2021-08-06] MEDS: LABETALOL HCL 5 MG/ML 4ML SYRINGE IV PRN (20:44)
[2021-08-06] MEDS: MORPHINE SULFATE INJECTION 2 MG/ML SYRG IV PRN (20:44)
[2021-08-06] MEDS: ACETAMINOPHEN 325 MG TAB PO PRN (20:45)
[2021-08-06] MEDS: ATORVASTATIN 20 MG TAB PO SCH (21:25)
[2021-08-06] MEDS: CLINDAMYCIN 600MG IV 50 ML IV SCH (21:25)
[2021-08-06] MEDS: QUEtiapine FUMARATE 25 MG TAB PO SCH (21:26)
[2021-08-07] VITALS (39 sets, daily range): BP systolic 127–166; BP diastolic 68–91
[2021-08-07] MEDS: MORPHINE SULFATE INJECTION 2 MG/ML SYRG IV PRN ×3 (00:26→14:24)
[2021-08-07] MEDS: InsuLIN REG 1unit/0.01ml Soln (100units/ml) SC SCH ×5 (00:39→23:56)
[2021-08-07] MEDS: PIPERACILLIN-TAZOB 3.375GM 100 ML IV SCH ×4 (00:43→19:43)
[2021-08-07] MEDS: LABETALOL HCL 5 MG/ML 4ML SYRINGE IV PRN ×3 (03:01→20:43)
[2021-08-07] MEDS: ACETAMINOPHEN 325 MG TAB PO PRN (03:02)
[2021-08-07] MEDS: MIDAZOLAM DRIP 50 mg/50mL 50 ML IV SCH ×7 (03:09→19:48)
[2021-08-07 04:24] LABS: Basophils # (auto) 0.1 10 ^3/uL (0-0.2); Eosinophils # (auto) 0 10 ^3/uL (0-0.8); Eosinophils % (auto) 0.2 % (0.0-7.0); Monocytes # (auto) 1.1 10 ^3/uL (0-1.3); Neutrophils # (auto) 11.4 10 ^3/uL (1.6-8.6)
[2021-08-07 04:26] LABS: Basophils % (auto) 0.5 % (0.0-2.0); Hematocrit 37.9 % (41.0-53.0); Hemoglobin 13.2 g/dL (13.5-17.5); Lymphocytes # (auto) 1.5 10 ^3/uL (0.4-5.4); Lymphocytes % (auto) 10.7 % (10.0-50.0); Mean Corpuscular Hemoglobin 34.9 pg (28.0-32.0); Mean Corpuscular Hgb Conc. 34.9 g/dL (32.0-36.0); Neutrophils % (auto) 80.6 % (37.0-80.0); Red Blood Cells 3.79 10^6/uL (4.5-5.90); Red Cell Distribution Width 12.8 % (11.8-14.3); White Blood Cell 14.2 10^3/uL (4.4-10.8)
[2021-08-07 04:45] LABS: Calcium 9.4 mg/dL (8.5-10.1)
[2021-08-07 04:48] LABS: BUN/Creatinine Ratio 23.5
[2021-08-07] MEDS: BUMETANIDE 2.5mg/10ml (0.25 mg/ml) INJ IV SCH ×2 (05:27→18:10)
[2021-08-07] MEDS: CLINDAMYCIN 600MG IV 50 ML IV SCH ×3 (05:28→20:55)
[2021-08-07] MEDS: ACCU-CHEK COMFORT CURVE STRIP VI SCH ×5 (05:35→23:55)
[2021-08-07] MEDS: cefTRIAXone 1GM/50ML D5W 50 ML IV SCH (09:32)
[2021-08-07] MEDS: PANTOPRAZOLE 40 MG/10 ML VIAL INJ IV SCH (09:33)
[2021-08-07] MEDS: TICAGRELOR 90 MG TAB PO SCH ×2 (09:33→20:55)
[2021-08-07] MEDS: POTASSIUM EFFERVESENT TAB 25 MEQ GT SCH (09:33)
[2021-08-07] MEDS: ASPirin 81 mg TAB PO SCH (09:33)
[2021-08-07] MEDS: SODIUM CHLOR 0.9% PF (SALINE LOCK) 10ML VIAL/SYR IV SCH ×2 (09:33→20:55)
[2021-08-07] MEDS: PROPOFOL 100 ML IV SCH ×2 (09:45→19:47)
[2021-08-07] MEDS: PHENYLEPHRINE IV 250 ML IV SCH ×2 (10:35→18:10)
[2021-08-07] MEDS ORDERED: POTASSIUM CHL 20MEQ/100ML 200 ML IV ONE (13:34)
[2021-08-07] MEDS: POTASSIUM CHL 20MEQ/100ML 100 ML IV SCH ×2 (13:52→14:45)
[2021-08-07] MEDS ORDERED: MORPHINE SULFATE INJECTION 2 MG/ML SYRG IV PRN (15:00)
[2021-08-07] MEDS: NOREPINEPHRINE 8 MG/250ML KIT 250 ML IV SCH (19:42)
[2021-08-07] MEDS: fentaNYL Drip 2500mCg/250mlNS 250 ML IV SCH (19:47)
[2021-08-07] MEDS: QUEtiapine FUMARATE 25 MG TAB PO SCH (20:56)
[2021-08-07] MEDS: ATORVASTATIN 20 MG TAB PO SCH (20:56)
[2021-08-08] VITALS (16 sets, daily range): BP systolic 153–178; BP diastolic 58–96
[2021-08-08] MEDS: MIDAZOLAM DRIP 50 mg/50mL 50 ML IV SCH ×3 (02:21→09:29)
[2021-08-08] MEDS: PHENYLEPHRINE IV 250 ML IV SCH ×2 (02:21→11:18)
[2021-08-08] MEDS: LABETALOL HCL 5 MG/ML 4ML SYRINGE IV PRN ×2 (03:19→11:12)
[2021-08-08 04:56] LABS: Basophils # (auto) 0.1 10 ^3/uL (0-0.2); Eosinophils # (auto) 0.2 10 ^3/uL (0-0.8); Lymphocytes # (auto) 1.8 10 ^3/uL (0.4-5.4); Mean Corpuscular Hgb Conc. 35.1 g/dL (32.0-36.0); Red Cell Distribution Width 12.6 % (11.8-14.3)
[2021-08-08 05:00] LABS: Eosinophils % (auto) 1.4 % (0.0-7.0); Hematocrit 40.4 % (41.0-53.0); Hemoglobin 14.2 g/dL (13.5-17.5); Mean Corpuscular Hemoglobin 35.6 pg (28.0-32.0); Mean Corpuscular Volume 101.5 fL (80.0-100.0); Monocytes # (auto) 1.2 10 ^3/uL (0-1.3); Monocytes % (auto) 9.3 % (0.0-12.0); Neutrophils # (auto) 9.8 10 ^3/uL (1.6-8.6); Neutrophils % (auto) 74.3 % (37.0-80.0); Nucleated Red Blood Cells % 0.3 %; Red Blood Cells 3.97 10^6/uL (4.5-5.90); White Blood Cell 13.2 10^3/uL (4.4-10.8)
[2021-08-08 05:13] LABS: INR 1.44 (0.9-1.15); Partial Thromboplastin Time 27.9 sec (23.6-33.0)
[2021-08-08 05:15] LABS: Albumin 2.9 g/dL (3.4-5.0); Calcium 8.9 mg/dL (8.5-10.1); Magnesium 2.6 mg/dL (1.6-2.6); Potassium 3.1 mmol/L (3.5-5.1)
[2021-08-08 05:22] LABS: BUN/Creatinine Ratio 21.5; Bilirubin, Total 0.9 mg/dL (0.2-1.0); Phosphorus 2.8 mg/dL (2.5-4.90); Total Protein 7.7 g/dL (6.4-8.2)
[2021-08-08] MEDS: BUMETANIDE 2.5mg/10ml (0.25 mg/ml) INJ IV SCH (05:47)
[2021-08-08] MEDS: InsuLIN REG 1unit/0.01ml Soln (100units/ml) SC SCH ×3 (05:48→18:00)
[2021-08-08] MEDS: CLINDAMYCIN 600MG IV 50 ML IV SCH ×3 (05:48→22:21)
[2021-08-08] MEDS: ACCU-CHEK COMFORT CURVE STRIP VI SCH ×3 (05:48→18:00)
[2021-08-08] MEDS: PROPOFOL 100 ML IV SCH (05:49)
[2021-08-08] MEDS: cefTRIAXone 1GM/50ML D5W 50 ML IV SCH (08:59)
[2021-08-08] MEDS: SODIUM CHLOR 0.9% PF (SALINE LOCK) 10ML VIAL/SYR IV SCH ×2 (09:29→22:22)
[2021-08-08] MEDS: PANTOPRAZOLE 40 MG/10 ML VIAL INJ IV SCH (09:29)
[2021-08-08] MEDS: POTASSIUM EFFERVESENT TAB 25 MEQ GT SCH (09:29)
[2021-08-08] MEDS: ASPirin 81 mg TAB PO SCH (09:29)
[2021-08-08] MEDS: TICAGRELOR 90 MG TAB PO SCH ×2 (09:30→22:21)
[2021-08-08] MEDS ORDERED: POTASSIUM CHL 20 Meq TABLET PO ONE (12:15)
[2021-08-08] MEDS ORDERED: POTASSIUM EFFERVESENT TAB 25 MEQ PO ONE (14:15)
[2021-08-08] MEDS: ATORVASTATIN 20 MG TAB PO SCH (22:22)
[2021-08-08] MEDS: SACUBITRIL-VALSARTAN 24mg/26mg TAB PO SCH (22:22)
[2021-08-09] MEDS: ACCU-CHEK COMFORT CURVE STRIP VI SCH ×4 (00:11→18:19)
[2021-08-09 02:48] VITALS: BP 163/96
[2021-08-09 05:00] VITALS: BP 151/70
[2021-08-09] MEDS: InsuLIN REG 1unit/0.01ml Soln (100units/ml) SC SCH ×4 (06:00→18:34)
[2021-08-09 06:02] LABS: Calcium 9.2 mg/dL (8.5-10.1); Potassium 3.2 mmol/L (3.5-5.1)
[2021-08-09 06:04] LABS: BUN/Creatinine Ratio 25.7
[2021-08-09] MEDS: LABETALOL HCL 5 MG/ML 4ML SYRINGE IV PRN ×2 (06:12→18:21)
[2021-08-09] MEDS: CLINDAMYCIN 600MG IV 50 ML IV SCH (06:12)
[2021-08-09] MEDS ORDERED: BUMETANIDE 2.5mg/10ml (0.25 mg/ml) INJ IV SCH (08:00)
[2021-08-09 09:00] VITALS: BP 146/78
[2021-08-09] MEDS: cefTRIAXone 1GM/50ML D5W 50 ML IV SCH (10:05)
[2021-08-09] MEDS: SACUBITRIL-VALSARTAN 24mg/26mg TAB PO SCH ×2 (10:08→22:07)
[2021-08-09] MEDS: POTASSIUM EFFERVESENT TAB 25 MEQ GT SCH (10:08)
[2021-08-09] MEDS: ASPirin 81 mg TAB PO SCH (10:08)
[2021-08-09] MEDS: SODIUM CHLOR 0.9% PF (SALINE LOCK) 10ML VIAL/SYR IV SCH ×2 (10:08→22:06)
[2021-08-09] MEDS ORDERED: CARVEDILOL 3.125 MG TAB PO ONE (10:30)
[2021-08-09] MEDS ORDERED: POTASSIUM CHL 20 Meq TABLET PO ONE (10:30)
[2021-08-09] MEDS: TICAGRELOR 90 MG TAB PO SCH ×2 (10:36→22:06)
[2021-08-09 12:30] VITALS: BP 141/87
[2021-08-09 17:00] VITALS: BP 161/91
[2021-08-09 21:50] VITALS: BP 149/86
[2021-08-09] MEDS: BUMETANIDE 2.5mg/10ml (0.25 mg/ml) INJ IV SCH (22:05)
[2021-08-09] MEDS: POTASSIUM CHL 20 Meq TABLET PO SCH (22:07)
[2021-08-09] MEDS: CARVEDILOL 3.125 MG TAB PO SCH (22:07)
[2021-08-09] MEDS: ATORVASTATIN 20 MG TAB PO SCH (22:08)
[2021-08-10 05:00] VITALS: BP 155/76
[2021-08-10] MEDS: InsuLIN REG 1unit/0.01ml Soln (100units/ml) SC SCH ×4 (06:00→18:00)
[2021-08-10 06:14] LABS: Calcium 9.1 mg/dL (8.5-10.1); Potassium 3.3 mmol/L (3.5-5.1)
[2021-08-10 06:17] LABS: BUN/Creatinine Ratio 25.9
[2021-08-10] MEDS: ACCU-CHEK COMFORT CURVE STRIP VI SCH ×4 (06:24→18:02)
[2021-08-10] MEDS: LABETALOL HCL 5 MG/ML 4ML SYRINGE IV PRN (06:42)
[2021-08-10 09:23] VITALS: BP 145/76
[2021-08-10] MEDS: cefTRIAXone 1GM/50ML D5W 50 ML IV SCH (09:23)
[2021-08-10] MEDS: ASPirin 81 mg TAB PO SCH (09:24)
[2021-08-10] MEDS: BUMETANIDE 2.5mg/10ml (0.25 mg/ml) INJ IV SCH (09:24)
[2021-08-10] MEDS: SODIUM CHLOR 0.9% PF (SALINE LOCK) 10ML VIAL/SYR IV SCH ×2 (09:24→22:00)
[2021-08-10] MEDS: SACUBITRIL-VALSARTAN 24mg/26mg TAB PO SCH ×2 (09:25→22:18)
[2021-08-10] MEDS: CARVEDILOL 3.125 MG TAB PO SCH ×2 (09:25→22:18)
[2021-08-10] MEDS: POTASSIUM CHL 20 Meq TABLET PO SCH ×2 (09:25→22:17)
[2021-08-10] MEDS: TICAGRELOR 90 MG TAB PO SCH ×2 (10:00→22:17)
[2021-08-10 13:00] VITALS: BP 124/76
[2021-08-10 17:50] VITALS: BP 152/85
[2021-08-10 22:00] VITALS: BP 143/92
[2021-08-10] MEDS: ATORVASTATIN 20 MG TAB PO SCH (22:17)
[2021-08-11] MEDS: ACCU-CHEK COMFORT CURVE STRIP VI SCH ×4 (02:30→17:35)
[2021-08-11] MEDS: InsuLIN REG 1unit/0.01ml Soln (100units/ml) SC SCH ×4 (02:30→17:35)
[2021-08-11 05:00] VITALS: BP 145/91
[2021-08-11 06:54] LABS: BUN/Creatinine Ratio 24.8; Calcium 9.1 mg/dL (8.5-10.1); Potassium 3.6 mmol/L (3.5-5.1)
[2021-08-11 09:00] VITALS: BP 141/82
[2021-08-11] MEDS ORDERED: BUMETANIDE 2.5mg/10ml (0.25 mg/ml) INJ IV SCH (10:00)
[2021-08-11 13:00] VITALS: BP 136/84
[2021-08-11] MEDS: POTASSIUM CHL 20 Meq TABLET PO SCH (13:05)
[2021-08-11] MEDS: SACUBITRIL-VALSARTAN 24mg/26mg TAB PO SCH (13:05)
[2021-08-11] MEDS: CARVEDILOL 3.125 MG TAB PO SCH (13:06)
[2021-08-11] MEDS: TICAGRELOR 90 MG TAB PO SCH (13:06)
[2021-08-11] MEDS: cefTRIAXone 1GM/50ML D5W 50 ML IV SCH (13:07)
[2021-08-11] MEDS: SODIUM CHLOR 0.9% PF (SALINE LOCK) 10ML VIAL/SYR IV SCH (13:07)
[2021-08-11] MEDS: ASPirin 81 mg TAB PO SCH (13:07)
[2021-08-11 17:00] VITALS: BP 115/75
== END 2021-08-11 22:15 | DRG 853 ==
LOC: EDUNIT# 17:59 → EDBD 17:59 → ER 18:07 → TELE 21:23 → ICU WEST 07-27 09:19 → ICU CENTRL 08-07 22:53 → DOU IN ICU 08-07 22:54 → TELE-CENTR 08-08 13:17
PROVIDERS: ADMIT Nurse Practitioner; ATTEND Internal Medicine
PROC: 06HM33Z Insertion of Infusion Device into Right Femoral Vein, Percutaneous Approach (ICD-10-PCS; 2021-07-26)
PROC: 5A1955Z Respiratory Ventilation, Greater than 96 Consecutive Hours (ICD-10-PCS; 2021-07-26)
PROC: 0BH17EZ Insertion of Endotracheal Airway into Trachea, Via Natural or Artificial Opening (ICD-10-PCS; 2021-07-26)
PROC: B2111ZZ Fluoroscopy of Multiple Coronary Arteries using Low Osmolar Contrast (ICD-10-PCS; 2021-07-29)
PROC: 027236Z Dilation of Coronary Artery, Three Arteries with Three Drug-eluting Intraluminal Devices, Percutaneous Approach (ICD-10-PCS; principal; 2021-08-01)
PROC: 5A0221D Assistance with Cardiac Output using Impeller Pump, Continuous (ICD-10-PCS; 2021-08-01)
PROC: 02HA3RJ Insertion of Short-term External Heart Assist System into Heart, Intraoperative, Percutaneous Approach (ICD-10-PCS; 2021-08-01)
PROC: 02HV33Z Insertion of Infusion Device into Superior Vena Cava, Percutaneous Approach (ICD-10-PCS; 2021-08-02)
PROC: 02HV33Z Insertion of Infusion Device into Superior Vena Cava, Percutaneous Approach (ICD-10-PCS; 2021-08-05)
DX: A40.9 Streptococcal sepsis, unspecified (principal); J96.01 Acute respiratory failure with hypoxia; J18.9 Pneumonia, unspecified organism; I21.4 Non-ST elevation (NSTEMI) myocardial infarction; N17.0 Acute kidney failure with tubular necrosis; I50.21 Acute systolic (congestive) heart failure; I49.01 Ventricular fibrillation; R65.21 Severe sepsis with septic shock; G93.41 Metabolic encephalopathy; I13.0 Hypertensive heart and chronic kidney disease with heart failure and stage 1 through stage 4 chronic kidney disease, or unspecified chronic kidney disease; Z20.822 Contact with and (suspected) exposure to COVID-19; E87.6 Hypokalemia; E66.9 Obesity, unspecified; I71.4 Abdominal aortic aneurysm, without rupture; N18.9 Chronic kidney disease, unspecified; I25.10 Atherosclerotic heart disease of native coronary artery without angina pectoris; E11.22 Type 2 diabetes mellitus with diabetic chronic kidney disease; E11.65 Type 2 diabetes mellitus with hyperglycemia; I25.5 Ischemic cardiomyopathy; Z98.61 Coronary angioplasty status; Z68.36 Body mass index [BMI] 36.0-36.9, adult; Z87.891 Personal history of nicotine dependence
CPT/HCPCS: 31500; 33990; 36415; 36556; 36569; 36600; 70450; 71045; 71250; 74176; 76700; 80048; 80053; 81001; 82306; 82570; 82728; 82805; 82962; 83036; 83605; 83735; 83880; 83970; 84100; 84132; 84156; 84300; 84484; 84550; 85025; 85379; 85610; 85730; 86141; 86850; 86900; 86901; 87040; 87070; 87077; 87081; 87186; 87205; 87426; 87493; 92610; 92928; 93005; 93306; 93454; 93970; 94002; 94003; 96365; 96375; 97110; 97163; 97530; 99152; 99153; 99291; C1874; C9113; G0378; J0330; J0696; J1100; J1815; J2250; J2543; J2704; J3480; J3490; J7060

== ENCOUNTER 2021-09-01 16:58 | Inpatient (IN) | payer MEDICARE, MEDICAID ==
[~2021-09-01] VITALS: Ht 185.4 cm; Wt 93.3 kg
[2021-09-01] MEDS ORDERED: methylPREDNISolone SOD SUCC 125 MG/2 ML VL IV ONE (17:15)
[2021-09-01 21:40] LABS: Basophils # (auto) 0 10 ^3/uL (0-0.2); Eosinophils # (auto) 0.1 10 ^3/uL (0-0.8); Hemoglobin 15.8 g/dL (13.5-17.5)
[2021-09-01 21:42] LABS: Basophils % (auto) 0.4 % (0.0-2.0); Eosinophils % (auto) 1.6 % (0.0-7.0); Hematocrit 45.3 % (41.0-53.0); Lymphocytes % (auto) 20.4 % (10.0-50.0); Mean Corpuscular Hemoglobin 35.4 pg (28.0-32.0); Mean Corpuscular Hgb Conc. 34.8 g/dL (32.0-36.0); Mean Corpuscular Volume 101.6 fL (80.0-100.0); Monocytes # (auto) 0.5 10 ^3/uL (0-1.3); Monocytes % (auto) 11.4 % (0.0-12.0); Neutrophils # (auto) 3.1 10 ^3/uL (1.6-8.6); Neutrophils % (auto) 66.2 % (37.0-80.0); Nucleated Red Blood Cells % 0.3 %; Red Blood Cells 4.46 10^6/uL (4.5-5.90); Red Cell Distribution Width 13.1 % (11.8-14.3); White Blood Cell 4.7 10^3/uL (4.4-10.8)
[2021-09-01 21:48] LABS: Albumin 3.4 g/dL (3.4-5.0); Calcium 9.2 mg/dL (8.5-10.1); Potassium 3.5 mmol/L (3.5-5.1)
[2021-09-01 21:56] LABS: Bilirubin, Total 0.6 mg/dL (0.2-1.0); CRP High Sensitivity 1.48 mg/dL (< 0.3); Total Protein 8.2 g/dL (6.4-8.2)
[2021-09-02] MEDS ORDERED: DOCUSATE SOD 100 MG CAP PO PRN (02:15)
[2021-09-02] MEDS ORDERED: ACETAMINOPHEN 500 MG TAB PO PRN (02:15)
[2021-09-02] MEDS ORDERED: ONDANSETRON HCL 4 MG/2 ML VIAL IV PRN (02:15)
[2021-09-02] MEDS ORDERED: MORPHINE SULFATE INJECTION 2 MG/ML SYRG IV PRN (02:15)
[2021-09-02] MEDS ORDERED: NITROGLYCERIN 0.4 MG SL TAB SL PRN (02:15)
[2021-09-02] MEDS: BUDESONIDE (INHALATION) 180 MCG IH IN SCH ×2 (07:40→19:51)
[2021-09-02] MEDS: ALBUTEROL SULF HFA 90MCG INH 200DOSE IN PRN ×2 (07:40→21:03)
[2021-09-02] MEDS ORDERED: DEXTROSE (50%) 50ML SYRG IV PRN (08:00)
[2021-09-02 08:47] VITALS: BP 113/75
[2021-09-02] MEDS: cefTRIAXone 1GM/50ML D5W 50 ML IV SCH (08:53)
[2021-09-02 09:18] LABS: Basophils # (auto) 0 10 ^3/uL (0-0.2); Eosinophils # (auto) 0 10 ^3/uL (0-0.8); Hemoglobin 15.6 g/dL (13.5-17.5); Monocytes # (auto) 0.1 10 ^3/uL (0-1.3)
[2021-09-02 09:21] LABS: Basophils % (auto) 0.4 % (0.0-2.0); Hematocrit 44.8 % (41.0-53.0); Lymphocytes # (auto) 0.5 10 ^3/uL (0.4-5.4); Lymphocytes % (auto) 20.3 % (10.0-50.0); Mean Corpuscular Hemoglobin 35.8 pg (28.0-32.0); Mean Corpuscular Hgb Conc. 34.9 g/dL (32.0-36.0); Mean Corpuscular Volume 102.4 fL (80.0-100.0); Monocytes % (auto) 5.2 % (0.0-12.0); Neutrophils % (auto) 74.1 % (37.0-80.0); Nucleated Red Blood Cells % 0.1 %; Red Blood Cells 4.37 10^6/uL (4.5-5.90); Red Cell Distribution Width 12.8 % (11.8-14.3); White Blood Cell 2.6 10^3/uL (4.4-10.8)
[2021-09-02 09:23] LABS: Albumin 3.2 g/dL (3.4-5.0); Calcium 8.7 mg/dL (8.5-10.1); Potassium 4.2 mmol/L (3.5-5.1)
[2021-09-02 09:27] LABS: BUN/Creatinine Ratio 19.5; Bilirubin, Total 0.5 mg/dL (0.2-1.0); Total Protein 7.5 g/dL (6.4-8.2)
[2021-09-02] MEDS ORDERED: HEPARIN SODIUM (PORCINE) 5000 UNITS/ML 1ML VIAL SC SCH (10:00)
[2021-09-02] MEDS: DOXYCYCLINE 100MG/250ML 250 ML IV SCH ×2 (10:56→21:46)
[2021-09-02] MEDS: FAMOTIDINE (10MG/ML) 2ML VL IV SCH ×2 (10:56→21:46)
[2021-09-02] MEDS: DexAMETHasone SOD PHOS 10MG/1ML VIAL INJ IV SCH (10:56)
[2021-09-02] MEDS: ZINC SULFATE 220mg CAP or TAB PO SCH (10:57)
[2021-09-02] MEDS: CHOLECALCIFEROL (VITD3) 2,000 UNIT CAP/TAB PO SCH (10:57)
[2021-09-02] MEDS: MULTIPLE VITAMIN TAB PO SCH (10:57)
[2021-09-02] MEDS: ASCORBIC ACID 1,000 MG TAB PO SCH (10:57)
[2021-09-02] MEDS: InsuLIN REG 1unit/0.01ml Soln (100units/ml) SC SCH ×3 (11:30→21:45)
[2021-09-02] MEDS: ACCU-CHEK COMFORT CURVE STRIP VI SCH ×3 (11:30→21:44)
[2021-09-02 13:00] VITALS: BP 125/73
[2021-09-02] MEDS ORDERED: REMDESIVIR PER PHARMACY 0 ML IV SCH (13:30)
[2021-09-02] MEDS ORDERED: IOHEXOL 350 MG/ML 100ML IJ ONE (14:42)
[2021-09-02] MEDS ORDERED: REMDESIVIR 200 MG in NS 210ml LOADING DOSE ADULT IV ONE (15:00)
[2021-09-02 15:17] VITALS: BP 125/73
[2021-09-02 15:45] VITALS: BP 113/75
[2021-09-02] MEDS ORDERED: ENOXAPARIN SOD 100 MG/1 ML SYRINGE SC ONE (16:30)
[2021-09-02 16:48] VITALS: BP 121/72
[2021-09-02] MEDS ORDERED: ASPI-498 PO (17:28)
[2021-09-02] MEDS ORDERED: ATO40T PO (17:29)
[2021-09-02] MEDS ORDERED: CRAN450T PO (17:46)
[2021-09-02] MEDS ORDERED: CARV6.2551 PO (17:46)
[2021-09-02] MEDS ORDERED: NITR0.4S29 SL (17:46)
[2021-09-02] MEDS ORDERED: ACET325T10 PO (17:46)
[2021-09-02] MEDS ORDERED: TICA90TA PO (17:46)
[2021-09-02] MEDS ORDERED: INSREG3 IV (17:46)
[2021-09-02] MEDS ORDERED: MAGN400S25 PO (17:46)
[2021-09-02] MEDS ORDERED: BUME1TAB3 PO (17:46)
[2021-09-02] MEDS ORDERED: SACU1TAB PO (17:46)
[2021-09-02] MEDS ORDERED: VITACAP PO (17:46)
[2021-09-02] MEDS ORDERED: BISA10SU5 RE (17:46)
[2021-09-02] MEDS ORDERED: AML5T PO (17:46)
[2021-09-02] MEDS ORDERED: DOCU100T15 PO (17:46)
[2021-09-02] MEDS ORDERED: POTA-220 PO (17:46)
[2021-09-02] MEDS ORDERED: ASCO500T11 PO (17:46)
[2021-09-02] MEDS ORDERED: LACT1CAP14 PO (17:46)
[2021-09-02] MEDS ORDERED: ZINC220C8 PO (17:46)
[2021-09-02] MEDS: ENOXAPARIN SOD 60 MG/0.6 ML SYRINGE SC SCH (18:19)
[2021-09-02 22:00] VITALS: BP 122/74
[2021-09-03 05:00] VITALS: BP 125/76
[2021-09-03] MEDS: ENOXAPARIN SOD 60 MG/0.6 ML SYRINGE SC SCH ×2 (05:58→17:28)
[2021-09-03] MEDS: InsuLIN REG 1unit/0.01ml Soln (100units/ml) SC SCH ×4 (05:58→23:18)
[2021-09-03] MEDS: ACCU-CHEK COMFORT CURVE STRIP VI SCH ×4 (05:58→22:00)
[2021-09-03] MEDS: HYDROcodone-ACET 5/325MG TAB PO PRN (05:59)
[2021-09-03 06:38] LABS: Basophils # (auto) 0 10 ^3/uL (0-0.2); Basophils % (auto) 0.2 % (0.0-2.0); Eosinophils # (auto) 0 10 ^3/uL (0-0.8); Lymphocytes % (auto) 12.7 % (10.0-50.0); Monocytes # (auto) 0.7 10 ^3/uL (0-1.3); Neutrophils # (auto) 5.9 10 ^3/uL (1.6-8.6); White Blood Cell 7.5 10^3/uL (4.4-10.8)
[2021-09-03 06:40] LABS: Hematocrit 43.2 % (41.0-53.0); Hemoglobin 14.8 g/dL (13.5-17.5); Mean Corpuscular Hemoglobin 35.2 pg (28.0-32.0); Mean Corpuscular Hgb Conc. 34.2 g/dL (32.0-36.0); Mean Corpuscular Volume 102.9 fL (80.0-100.0); Neutrophils % (auto) 78.1 % (37.0-80.0)
[2021-09-03 06:52] LABS: Albumin 3.1 g/dL (3.4-5.0); Calcium 8.7 mg/dL (8.5-10.1)
[2021-09-03 06:55] LABS: BUN/Creatinine Ratio 30.2; Bilirubin, Total 0.4 mg/dL (0.2-1.0); Total Protein 7.2 g/dL (6.4-8.2)
[2021-09-03 09:16] VITALS: BP 119/73
[2021-09-03] MEDS: DexAMETHasone SOD PHOS 10MG/1ML VIAL INJ IV SCH (09:44)
[2021-09-03] MEDS: cefTRIAXone 1GM/50ML D5W 50 ML IV SCH (09:44)
[2021-09-03] MEDS: FAMOTIDINE (10MG/ML) 2ML VL IV SCH ×2 (09:45→22:32)
[2021-09-03] MEDS: DOXYCYCLINE 100MG/250ML 250 ML IV SCH ×2 (09:45→22:32)
[2021-09-03] MEDS: ZINC SULFATE 220mg CAP or TAB PO SCH (09:47)
[2021-09-03] MEDS: MULTIPLE VITAMIN TAB PO SCH (09:47)
[2021-09-03] MEDS: CHOLECALCIFEROL (VITD3) 2,000 UNIT CAP/TAB PO SCH (09:48)
[2021-09-03] MEDS: ASCORBIC ACID 1,000 MG TAB PO SCH (09:48)
[2021-09-03] MEDS ORDERED: FUROSEMIDE 20 MG/2 ML VIAL IV ONE (12:45)
[2021-09-03 13:00] VITALS: BP 111/71
[2021-09-03] MEDS: REMDESIVIR 100mg 100 MG in SODIUM CHL 0.9% 230 ML IV SCH (14:35)
[2021-09-03] MEDS: BUDESONIDE (INHALATION) 180 MCG IH IN SCH ×2 (14:59→21:58)
[2021-09-03] MEDS: ALBUTEROL SULF HFA 90MCG INH 200DOSE IN PRN ×2 (14:59→21:58)
[2021-09-03 17:26] VITALS: BP 99/64
[2021-09-03 22:00] VITALS: BP 113/79
[2021-09-04 05:00] VITALS: BP 109/78
[2021-09-04] MEDS: ENOXAPARIN SOD 100 MG/1 ML SYRINGE SC SCH ×2 (05:15→17:08)
[2021-09-04] MEDS: ACCU-CHEK COMFORT CURVE STRIP VI SCH ×4 (05:30→21:37)
[2021-09-04] MEDS: InsuLIN REG 1unit/0.01ml Soln (100units/ml) SC SCH ×4 (05:30→21:37)
[2021-09-04 06:38] LABS: Potassium 3.6 mmol/L (3.5-5.1)
[2021-09-04 06:42] LABS: BUN/Creatinine Ratio 28.9; Calcium 8.6 mg/dL (8.5-10.1)
[2021-09-04 06:45] LABS: Bilirubin, Total 0.5 mg/dL (0.2-1.0); Total Protein 6.8 g/dL (6.4-8.2)
[2021-09-04] MEDS: BUDESONIDE (INHALATION) 180 MCG IH IN SCH ×2 (06:49→19:08)
[2021-09-04] MEDS: ALBUTEROL SULF HFA 90MCG INH 200DOSE IN PRN ×2 (06:49→19:08)
[2021-09-04 08:00] VITALS: BP 111/71
[2021-09-04] MEDS: cefTRIAXone 1GM/50ML D5W 50 ML IV SCH (08:35)
[2021-09-04 09:00] VITALS: BP 110/71
[2021-09-04] MEDS: DexAMETHasone SOD PHOS 10MG/1ML VIAL INJ IV SCH (09:31)
[2021-09-04] MEDS: DOXYCYCLINE 100MG/250ML 250 ML IV SCH ×2 (09:32→21:37)
[2021-09-04] MEDS: FUROSEMIDE 20 MG/2 ML VIAL IV SCH (09:32)
[2021-09-04] MEDS: FAMOTIDINE (10MG/ML) 2ML VL IV SCH ×2 (09:32→21:37)
[2021-09-04] MEDS: ASCORBIC ACID 1,000 MG TAB PO SCH (09:33)
[2021-09-04] MEDS: MULTIPLE VITAMIN TAB PO SCH (09:33)
[2021-09-04] MEDS: ZINC SULFATE 220mg CAP or TAB PO SCH (09:33)
[2021-09-04] MEDS: CHOLECALCIFEROL (VITD3) 2,000 UNIT CAP/TAB PO SCH (09:33)
[2021-09-04] MEDS: HYDROcodone-ACET 5/325MG TAB PO PRN (09:38)
[2021-09-04 13:00] VITALS: BP 99/69
[2021-09-04] MEDS: REMDESIVIR 100mg 100 MG in SODIUM CHL 0.9% 230 ML IV SCH (14:52)
[2021-09-04 17:00] VITALS: BP 105/76
[2021-09-04 22:00] VITALS: BP 128/76
[2021-09-05 05:00] VITALS: BP 132/64
[2021-09-05] MEDS: ENOXAPARIN SOD 100 MG/1 ML SYRINGE SC SCH ×2 (05:25→17:33)
[2021-09-05] MEDS: BUDESONIDE (INHALATION) 180 MCG IH IN SCH ×2 (06:07→19:46)
[2021-09-05] MEDS: ALBUTEROL SULF HFA 90MCG INH 200DOSE IN PRN ×2 (06:07→19:46)
[2021-09-05] MEDS: InsuLIN REG 1unit/0.01ml Soln (100units/ml) SC SCH ×4 (06:59→22:30)
[2021-09-05] MEDS: ACCU-CHEK COMFORT CURVE STRIP VI SCH ×4 (07:00→22:25)
[2021-09-05 07:10] LABS: Albumin 2.9 g/dL (3.4-5.0); Calcium 8.3 mg/dL (8.5-10.1); Potassium 3.9 mmol/L (3.5-5.1)
[2021-09-05 07:12] LABS: BUN/Creatinine Ratio 30.2
[2021-09-05 07:25] LABS: Bilirubin, Total 0.5 mg/dL (0.2-1.0); Total Protein 6.5 g/dL (6.4-8.2)
[2021-09-05 10:06] VITALS: BP 120/80
[2021-09-05] MEDS: FUROSEMIDE 20 MG/2 ML VIAL IV SCH (10:32)
[2021-09-05] MEDS: DexAMETHasone SOD PHOS 10MG/1ML VIAL INJ IV SCH (10:32)
[2021-09-05] MEDS: cefTRIAXone 1GM/50ML D5W 50 ML IV SCH (10:32)
[2021-09-05] MEDS: ASCORBIC ACID 1,000 MG TAB PO SCH (10:33)
[2021-09-05] MEDS: CHOLECALCIFEROL (VITD3) 2,000 UNIT CAP/TAB PO SCH (10:33)
[2021-09-05] MEDS: ZINC SULFATE 220mg CAP or TAB PO SCH (10:33)
[2021-09-05] MEDS: MULTIPLE VITAMIN TAB PO SCH (10:33)
[2021-09-05] MEDS: FAMOTIDINE (10MG/ML) 2ML VL IV SCH ×2 (10:33→21:45)
[2021-09-05] MEDS: DOXYCYCLINE 100MG/250ML 250 ML IV SCH ×2 (10:45→21:45)
[2021-09-05 13:29] VITALS: BP 110/70
[2021-09-05] MEDS: REMDESIVIR 100mg 100 MG in SODIUM CHL 0.9% 230 ML IV SCH (14:54)
[2021-09-05 17:00] VITALS: BP 128/74
[2021-09-05] MEDS: MUPIROCIN 2% OINT 15gm or 22gm EACHNOSTRI SCH (21:45)
[2021-09-05 22:02] VITALS: BP 117/83
[2021-09-06 01:54] VITALS: BP 117/83
[2021-09-06 03:12] LABS: Albumin 2.6 g/dL (3.4-5.0); BUN/Creatinine Ratio 29.1; CRP High Sensitivity 0.78 mg/dL (< 0.3); Calcium 8.7 mg/dL (8.5-10.1); Potassium 4.7 mmol/L (3.5-5.1)
[2021-09-06 03:15] LABS: Bilirubin, Total 0.5 mg/dL (0.2-1.0)
[2021-09-06 05:00] VITALS: BP 112/74
[2021-09-06] MEDS: ENOXAPARIN SOD 100 MG/1 ML SYRINGE SC SCH ×2 (05:45→17:22)
[2021-09-06] MEDS: ACCU-CHEK COMFORT CURVE STRIP VI SCH ×4 (06:45→22:25)
[2021-09-06] MEDS: InsuLIN REG 1unit/0.01ml Soln (100units/ml) SC SCH ×4 (06:45→22:25)
[2021-09-06] MEDS: BUDESONIDE (INHALATION) 180 MCG IH IN SCH ×2 (06:52→21:39)
[2021-09-06] MEDS: ALBUTEROL SULF HFA 90MCG INH 200DOSE IN PRN ×2 (06:52→21:39)
[2021-09-06 07:57] LABS: Basophils # (auto) 0.1 10 ^3/uL (0-0.2); Basophils % (auto) 0.6 % (0.0-2.0); Eosinophils # (auto) 0.2 10 ^3/uL (0-0.8); Hematocrit 42.9 % (41.0-53.0); Hemoglobin 14.6 g/dL (13.5-17.5); Lymphocytes # (auto) 1.5 10 ^3/uL (0.4-5.4); Lymphocytes % (auto) 17.5 % (10.0-50.0); Mean Corpuscular Volume 102.9 fL (80.0-100.0); Monocytes # (auto) 0.7 10 ^3/uL (0-1.3); Monocytes % (auto) 8.4 % (0.0-12.0); Neutrophils # (auto) 6.3 10 ^3/uL (1.6-8.6); Neutrophils % (auto) 71.5 % (37.0-80.0); Nucleated Red Blood Cells % 0.2 %; Red Blood Cells 4.17 10^6/uL (4.5-5.90); White Blood Cell 8.8 10^3/uL (4.4-10.8)
[2021-09-06] MEDS: DexAMETHasone SOD PHOS 10MG/1ML VIAL INJ IV SCH (08:09)
[2021-09-06] MEDS: MUPIROCIN 2% OINT 15gm or 22gm EACHNOSTRI SCH ×2 (08:09→22:25)
[2021-09-06] MEDS: cefTRIAXone 1GM/50ML D5W 50 ML IV SCH (08:09)
[2021-09-06] MEDS: ZINC SULFATE 220mg CAP or TAB PO SCH (08:10)
[2021-09-06] MEDS: FAMOTIDINE (10MG/ML) 2ML VL IV SCH ×2 (08:10→22:25)
[2021-09-06] MEDS: FUROSEMIDE 20 MG/2 ML VIAL IV SCH (08:10)
[2021-09-06] MEDS: MULTIPLE VITAMIN TAB PO SCH (08:10)
[2021-09-06] MEDS: ASCORBIC ACID 1,000 MG TAB PO SCH (08:11)
[2021-09-06] MEDS: CHOLECALCIFEROL (VITD3) 2,000 UNIT CAP/TAB PO SCH (08:11)
[2021-09-06 09:00] VITALS: BP 111/81
[2021-09-06] MEDS: DOXYCYCLINE 100MG/250ML 250 ML IV SCH ×2 (09:19→22:25)
[2021-09-06] MEDS ORDERED: ERGOCALCIFEROL 50,000 UNIT(1.25MG) CAP PO SCH (12:30)
[2021-09-06 12:40] VITALS: BP 130/74
[2021-09-06] MEDS: REMDESIVIR 100mg 100 MG in SODIUM CHL 0.9% 230 ML IV SCH (15:38)
[2021-09-06 17:00] VITALS: BP 130/73
[2021-09-06 22:00] VITALS: BP 124/68
[2021-09-07] VITALS (7 sets, daily range): BP systolic 114–147; BP diastolic 72–82
[2021-09-07] MEDS: ENOXAPARIN SOD 100 MG/1 ML SYRINGE SC SCH ×2 (05:50→18:11)
[2021-09-07] MEDS: InsuLIN REG 1unit/0.01ml Soln (100units/ml) SC SCH ×4 (06:39→22:16)
[2021-09-07] MEDS: ACCU-CHEK COMFORT CURVE STRIP VI SCH ×4 (06:39→21:59)
[2021-09-07] MEDS: ALBUTEROL SULF HFA 90MCG INH 200DOSE IN PRN ×2 (08:54→19:11)
[2021-09-07] MEDS: BUDESONIDE (INHALATION) 180 MCG IH IN SCH ×2 (08:54→19:11)
[2021-09-07] MEDS: MUPIROCIN 2% OINT 15gm or 22gm EACHNOSTRI SCH ×2 (11:23→21:57)
[2021-09-07] MEDS: DexAMETHasone SOD PHOS 10MG/1ML VIAL INJ IV SCH (11:23)
[2021-09-07] MEDS: FUROSEMIDE 20 MG/2 ML VIAL IV SCH (11:24)
[2021-09-07] MEDS: ZINC SULFATE 220mg CAP or TAB PO SCH (11:24)
[2021-09-07] MEDS: MULTIPLE VITAMIN TAB PO SCH (11:24)
[2021-09-07] MEDS: FAMOTIDINE (10MG/ML) 2ML VL IV SCH ×2 (11:24→21:58)
[2021-09-07] MEDS: CHOLECALCIFEROL (VITD3) 2,000 UNIT CAP/TAB PO SCH (11:25)
[2021-09-07] MEDS: ASCORBIC ACID 1,000 MG TAB PO SCH (11:25)
[2021-09-07] MEDS: cefTRIAXone 1GM/50ML D5W 50 ML IV SCH (11:26)
[2021-09-08 05:00] VITALS: BP 158/85
[2021-09-08] MEDS: ENOXAPARIN SOD 100 MG/1 ML SYRINGE SC SCH (05:16)
[2021-09-08] MEDS: BUDESONIDE (INHALATION) 180 MCG IH IN SCH ×2 (06:15→08:08)
[2021-09-08] MEDS: ALBUTEROL SULF HFA 90MCG INH 200DOSE IN PRN (06:15)
[2021-09-08] MEDS: ACCU-CHEK COMFORT CURVE STRIP VI SCH ×2 (06:34→12:14)
[2021-09-08] MEDS: InsuLIN REG 1unit/0.01ml Soln (100units/ml) SC SCH ×2 (06:35→12:17)
[2021-09-08 09:00] VITALS: BP 117/72
[2021-09-08] MEDS: MUPIROCIN 2% OINT 15gm or 22gm EACHNOSTRI SCH (10:21)
[2021-09-08] MEDS: cefTRIAXone 1GM/50ML D5W 50 ML IV SCH (10:21)
[2021-09-08] MEDS: FUROSEMIDE 20 MG/2 ML VIAL IV SCH (10:22)
[2021-09-08] MEDS: ZINC SULFATE 220mg CAP or TAB PO SCH (10:22)
[2021-09-08] MEDS: MULTIPLE VITAMIN TAB PO SCH (10:22)
[2021-09-08] MEDS: FAMOTIDINE (10MG/ML) 2ML VL IV SCH (10:22)
[2021-09-08] MEDS: DexAMETHasone SOD PHOS 10MG/1ML VIAL INJ IV SCH (10:22)
[2021-09-08] MEDS: CHOLECALCIFEROL (VITD3) 2,000 UNIT CAP/TAB PO SCH (10:22)
[2021-09-08] MEDS: ASCORBIC ACID 1,000 MG TAB PO SCH (10:23)
[2021-09-08 12:43] VITALS: BP 110/72
== END 2021-09-08 14:30 | disposition home health service (06) | DRG 177 ==
LOC: EDUNIT# 16:58 → EDBD 16:58 → ER 16:58 → TELE 09-02 02:14 → TELE-E-ADS 09-02 07:42
PROVIDERS: ADMIT Nurse Practitioner Family; ATTEND Internal Medicine
PROC: XW033E5 Introduction of Remdesivir Anti-infective into Peripheral Vein, Percutaneous Approach, New Technology Group 5 (ICD-10-PCS; principal; 2021-09-02)
DX: U07.1 COVID-19 (principal); J12.82 Pneumonia due to coronavirus disease 2019; I50.23 Acute on chronic systolic (congestive) heart failure; J96.01 Acute respiratory failure with hypoxia; I24.9 Acute ischemic heart disease, unspecified; I13.0 Hypertensive heart and chronic kidney disease with heart failure and stage 1 through stage 4 chronic kidney disease, or unspecified chronic kidney disease; I82.403 Acute embolism and thrombosis of unspecified deep veins of lower extremity, bilateral; I71.4 Abdominal aortic aneurysm, without rupture; E11.22 Type 2 diabetes mellitus with diabetic chronic kidney disease; E11.21 Type 2 diabetes mellitus with diabetic nephropathy; N18.9 Chronic kidney disease, unspecified; E55.9 Vitamin D deficiency, unspecified; E78.5 Hyperlipidemia, unspecified; I25.10 Atherosclerotic heart disease of native coronary artery without angina pectoris; I25.2 Old myocardial infarction; Z79.01 Long term (current) use of anticoagulants; Z95.5 Presence of coronary angioplasty implant and graft
CPT/HCPCS: 36415; 36600; 71045; 71250; 71275; 73630; 80053; 82728; 82805; 82962; 83036; 83615; 83735; 83880; 84443; 84484; 85025; 85379; 86141; 87081; 87426; 93005; 93970; 94640; 96374; 97116; 97163; 97530; 99291; G0378; J0696; J1100; J1815; J3490